=== PATIENT | male | born 1990 | race Caucasian/White ===

== ENCOUNTER 2021-09-12 12:19 | Emergency (ER) | payer OTHER, SELFPAY ==
[2021-09-12 12:33] VITALS: BP 139/68; PULSE 58; RESP 16; TEMP 35.9; O2SAT 95
--- NOTE | 2021-09-12 12:42 | ED.SKABFB ---
HPI - Skin/Abscess/Foreign Bdy General Stated complaint: tick bite - ?infection Time Seen by Provider: 09/12/21 12:41 Source: patient Mode of arrival: ambulatory Limitations: no limitations History of Present Illness MD complaint: insect bite/sting Onset (ago): day(s) (1) Tetanus up to date: yes Location: generalized (R abdominal wall) Severity: mild Quality: dull Relieving factors: other (pulled the tick out) Exacerbating factors: none Context: other (tick bite) Associated symptoms: denies other symptoms Treatments prior to arrival: none Related Data Previous Rx's Medication Instructions Recorded doxycycline monohydrate 100 mg 100 mg PO DAILY 10 Days #10 tab 09/12/21 tablet Allergies Allergy/AdvReac Type Severity Reaction Status Date / Time No Known Allergies Allergy Unverified 07/23/20 17:57 Review of Systems Review of Systems: Constitutional : No Fever, No Chills, Cardiovascular : No Chest Pain, No SOB Respiratory : No Dyspnea Gastrointestinal : No abdominal pain Musculoskeletal : No Joint Swelling Skin : No rash, positive skin lesion Neuro : No Weakness, No Numbness Psych : No SI/HI PMFSH Past Medical History Attestation statement: The following information was validated with the patient. Medical History (Updated 09/12/21 @ 12:48 by Ilene Farfan DO) Seasonal depression Social History Social History (Updated 09/12/21 @ 12:49 by Ilene Farfan DO) Patient Tobacco Use Status: Tobacco use Unknown Advance Directives: No Advance Directives Information Provided: No Physical Exam Vital Signs: Vital Signs: Last Vital Signs Temp 96.6 F L 09/12/21 12:33 Pulse 58 09/12/21 12:33 Resp 16 09/12/21 12:33 BP 139/68 09/12/21 12:33 Pulse Ox 95 09/12/21 12:33 Appearance: Alert. Oriented X3. No acute distress. Eyes: Pupils equal, round and reactive to light. ENT: Pharynx normal. Neck: Normal inspection. Neck supple. CVS: Pulses normal. Respiratory: No respiratory distress. Abdomen: Soft and non-tender. R abdominal pain - lesion noted small less than 1 cm no mass felt area in center is slightly yellow no extending lesions or erythema Skin: Skin warm and dry. Normal skin color. Extremities: No lower extremity edema. Neuro: Oriented X 3. No motor deficit. No sensory deficit. MDM - Skin/Abscess/Foreign Bdy MDM Narrative Medical decision making narrative: 30 yo male with removed tick from R abdominal wall yesterday I do not see any leftover tick but he did cause some local trauma by picking it will put on doxy x 10 days, instructed him to leave the area alone Discharge Plan Discharge Clinical Impression: Tick bite Qualifiers: Encounter type: initial encounter Site of tick bite: abdominal wall Qualified Code(s): S30.861A - Insect bite (nonvenomous) of abdominal wall, initial encounter Patient Disposition: Home, Self-Care Instructions: Tick Bite (ED) Additional Instructions: return to ED for any worsening symptoms or concerns Prescriptions: New doxycycline monohydrate 100 mg tablet 100 mg PO DAILY 10 Days Qty: 10 RF: 0
[2021-09-12 12:50] VITALS: BP 139/68; PULSE 58; RESP 16; TEMP 35.9; O2SAT 95; BMI 30.7
== END 2021-09-12 13:04 | disposition home or self-care (01) ==
PROVIDERS: Emergency Provider Emergency Medicine
DX: S30.861A Insect bite (nonvenomous) of abdominal wall, initial encounter (principal); W57.XXXA Bitten or stung by nonvenomous insect and other nonvenomous arthropods, initial encounter; Y93.9 Activity, unspecified; Y92.9 Unspecified place or not applicable; Y99.9 Unspecified external cause status
CPT/HCPCS: 99283